=== PATIENT | female | born 1990 | race Caucasian/White ===

== ENCOUNTER 2022-11-07 05:03 | Emergency (ER) | payer OTHER ==
[~2022-11-07] VITALS: Ht 165.1 cm; Wt 90.7 kg
[2022-11-07 05:10] VITALS: BP_SYST 123
[2022-11-07] MEDS ORDERED: DIPHENHYDRAMINE HCL 50 MG CAPSULE PO ONE (05:30)
[2022-11-07] MEDS ORDERED: DEXAMETHASONE SOD PHOSPHATE 10 MG/ML VIAL IM ONE (05:30)
[2022-11-07] MEDS ORDERED: DIPH25CA83 PO (06:05)
[2022-11-07 07:30] VITALS: BP_SYST 123
== END 2022-11-07 07:31 | disposition home or self-care (01) ==
LOC: SED 05:03
DX: T78.40XA Allergy, unspecified, initial encounter (principal); R13.10 Dysphagia, unspecified; R07.0 Pain in throat; Z79.899 Other long term (current) drug therapy; X58.XXXA Exposure to other specified factors, initial encounter
CPT/HCPCS: 99283; 96372; Q0163; J1100

== ENCOUNTER 2022-11-09 08:39 | Emergency (ER) | payer OTHER ==
[~2022-11-09] VITALS: Ht 165.1 cm; Wt 90.7 kg
[~2022-11-09 08:39] MED LIST: DIPH25CA83 PO
[2022-11-09 08:47] VITALS: BP_SYST 128
[2022-11-09] MEDS ORDERED: MED4 PO (08:49)
[2022-11-09] MEDS ORDERED: AZIT500T3 PO (08:49)
[2022-11-09 09:05] VITALS: BP_SYST 128
== END 2022-11-09 09:00 | disposition home or self-care (01) ==
LOC: SED 08:39
DX: J04.0 Acute laryngitis (principal); J02.9 Acute pharyngitis, unspecified; Z79.899 Other long term (current) drug therapy
CPT/HCPCS: 99283